=== PATIENT | male | born 1990 | race Two or more races ===

== ENCOUNTER 2024-12-09 14:41 | Emergency (ER) | payer MEDICAID ==
[~2024-12-09] VITALS: Ht 188 cm; Wt 83.9 kg
[2024-12-09 14:50] VITALS: BP 120/61; TEMP 97.5; O2SAT 97
[2024-12-09] MEDS ORDERED: LIDO30AD10 TP (15:08)
== END 2024-12-09 15:15 | disposition home or self-care (01) ==
LOC: ER 14:41
DX: M76.32 Iliotibial band syndrome, left leg (principal); M54.32 Sciatica, left side; Z90.49 Acquired absence of other specified parts of digestive tract